=== PATIENT | male | born 1965 | race Caucasian/White ===

== ENCOUNTER 2019-07-12 09:46 | Observation (INO) | payer MEDICARE ==
[~2019-07-12] VITALS: Ht 190.5 cm; Wt 159.1 kg
[2019-07-12 10:49] LABS: CKMB 4.2 U/L (0.0-3.6); CREATINE KINASE 346 UL (21-232); TROPONIN-I < 0.017 ng/mL (0.000-0.060)
[2019-07-12 11:22] LABS: MAGNESIUM - SERUM 2.2 mg/dL (1.8-2.4); THYROID STIMULATING HORMONE 1.02 uIU/mL (0.36-3.74)
--- NOTE | 2019-07-12 15:40 | NUR ---
NEW PATIENT ADMIT FROM ER VIA WC AND HOSPITAL PERSONNEL. PATIENT ADMITTING DX IS DYSPNEA. PATIENT IS AWAKE, ALERT AND ORIENTED X 4. PATIENT IS AMBULATORY. PATIENT DENIES ANY NEEDS OR PAIN. O2 SAT ON RA IS 93%. TELEMETRY APPLIED. 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 RADHA AVENDANO FROM WOUND CARE EVALUATED AND NO NEW ORDERS RECEIVED. PATIENT REFUSED HOSPITAL GOWN. ORIENTED PATIENT TO ROOM AND CALL LIGHT. PATIENT SITTING UP IN BS. CALL LIGHT IN REACH.
[2019-07-12 15:44] VITALS: BP 152/88; BMI 43.8
--- NOTE | 2019-07-12 17:46 | NUR ---
PATIENT SITTING UP IN BS CHAIR EATING SUPPER. PATIENT IS STABLE AND VSS. PATIENT DENIES ANY NEEDS OR PAIN. WILL CONTINUE TO MON ITOR. SR UP X 2 BED IN LOW POSITION AND CALL LIGHT IN REACH.
[2019-07-12 20:00] VITALS: BP 124/64
[2019-07-13] VITALS: BP 116/64
[2019-07-13 00:58] LABS: CKMB 2.7 U/L (0.0-3.6); CREATINE KINASE 216 UL (21-232); TROPONIN-I < 0.017 ng/mL (0.000-0.060)
[2019-07-13 05:43] VITALS: BP 123/64
[2019-07-13 06:51] LABS: CKMB 2.5 U/L (0.0-3.6); CREATINE KINASE 180 UL (21-232); PRO BNP 315 pg/mL (0-125); TROPONIN-I < 0.017 ng/mL (0.000-0.060)
--- NOTE | 2019-07-13 07:40 | NUR ---
ASSESSMENT COMPLETED. ALERT AND ORIENTED. ON ROOM AIR. LEFT AC SL, PATENT. TELEMERTY SHOWS SR.UP AB ALBERTO.DENIES ANY NEEDS. WILL MONITOR
--- NOTE | 2019-07-13 08:49 | NUR ---
PT STATES HE HAS HX OF VENOUS ULCERS. LEFT LOWER MEDIAL LEG IS DISCOLORED AND THERE IS A HEALED ULCER THERE. HE SAYS WHEN HE FOLLOWED DR LYNCH AND QUIT SMOKING AND LOST WEIGHT THE ULCER STARTED HEALING. WOUND CARE WILL MONITOR.
[2019-07-13 09:16] VITALS: BP 106/53
[2019-07-13 11:08] LABS: BASOPHILS 0.1 % (0-2); EOSINOPHILS 0 % (0-7); HEMATOCRIT 40.6 % (42.0-54.0); HEMOGLOBIN 14.4 g/dL (13.5-17.5); IMMATURE GRANULOCYTES 0.2 % (0-5); LYMPHOCYTES 9.3 % (15-50); MCH 29.3 pg (26.0-34.0); MCHC 35.5 g/dL (31.0-37.0); MCV 82.7 fL (80.0-100.0); MEAN PLATELET VOLUME 11.5 fL (7.4-10.4); MONOCYTES 8.8 % (2-11); NEUTROPHILS 81.6 % (40-80); PLATELET COUNT 191 10x3/uL (130-400); RBC 4.91 10x6/uL (4.20-6.10); RDW 14.8 % (11.5-14.5); WBC 14.1 10x3/uL (4.8-10.8)
[2019-07-13 12:25] VITALS: Ht 190.5 cm; Wt 159.1 kg
--- NOTE | 2019-07-13 12:55 | NUR ---
URINE CUP GIVEN TO PT FOR UA AND CULTURE. ST ATED HE WOULD WHEN HE HAS TO GO
[2019-07-13 13:09] LABS: CKMB 2.4 U/L (0.0-3.6); CREATINE KINASE 166 UL (21-232)
[2019-07-13 13:11] LABS: TROPONIN-I < 0.017 ng/mL (0.000-0.060)
[2019-07-13 13:20] VITALS: BP 116/95
--- NOTE | 2019-07-13 14:31 | EC ---
PATIENT:AMANDA AVERY DATE OF SERVICE: 07/12/19 SEX: M MEDICAL RECORD: [id number] DATE OF : 61 LOCATION:D.M2 D.212 AGE OF PATIENT: 54 ADMISSION DATE: 07/12/19 REFERRING PHYSICIAN: INTERPRETING PHYSICIAN: DAVID GONZALEZ MD ECHOCARDIOGRAM REPORT ECHO CHARGES 4 ECHO COMPLETE Date: 07/12/19 CLINICAL DIAGNOSIS: CHF ECHOCARDIOGRAPHIC MEASUREMENTS (adult normal given) AC root (d.<3.7cm) 3.6 cm LV Septum d (<1.2 cm> 2.0 cm Valve Excursion 2.3 cm LV Septum (systole) 2.4 cm Left Atria (s.<4.0cm> 4.6 cm LVPW d(<1.2cm) 1.8 cm RV (d.<2.3cm) 3.7 cm LVPW (sytole) 2.5 cm LV diastole(<5.6CM) 5.5 cm MV E-F(>70mm/sec) cm LV systole 3.6 cm LVOT Diameter 2.4 cm MV exc.(>10mm) cm Est.ejection fraction (50-75%) % DOPPLER: LVIT cm/sec A 64.0 cm/sec E 68.0 cm/sec LA cm/sec RVSP 20.0 mmHg LVOT 186 cm/sec AOP1/2T m/s Asc. Ao 187 cm/sec RVOT 79.0 cm/sec RA cm/sec PA 101 cm/sec AV Gradient Peak 14.0 mmHg AV Mean 7.4 mmHg AV Area 4.3 cm MV Gradient Peak 3.5 mmHg MV Mean 1.7 mmHg MV Area cm COMMENTS: Director Of Social Work: Juvenal NINA Dental Mechanic: 3 Dr. Hernandez TAPE# PACS Pericardial Effusion N DATE OF SERVICE: 07/12/2019 FINDINGS: 1. Left ventricular chamber size is within normal limits. Left ventricular systolic function is normal at 55%. 2. Left atrium is enlarged at 4.6 cm. Right atrium and right ventricular chamber sizes are as well mildly dilated. 3. Valvular structures have normal structure and motion. 4. Doppler interrogation reveals no significant valvular insufficiency or stenosis. ECHOCARDIOGRAM REPORT [id number] AMANDA AVERY 5. No evidence of pericardial effusion or left ventricular thrombus. Pulmonary systolic pressure is normal estimated at 20 mmHg. 6. No evidence of pericardial effusion or left ventricular thrombus. TRANSINT:[id number] Voice Confirmation ID: [id number] DOCUMENT ID: [id number] DAVID GONZALEZ MD at 1431 CC: [id number] DICTATION DATE: 07/12/19 1706 PATTERN CLERK: 07/12/19 [id number] ADM IN [facility] [address] [id number]
--- NOTE | 2019-07-13 14:31 | CN ---
PATIENT NAME:AMANDA AVERY MEDICAL RECORD: [id number] : 61 LOCATION:D. D.2121 ADMIT DATE: 07/12/19 ACCOUNT: [id number] CONSULTING PHYSICIAN: DAVID GONZALEZ MD REFERRING PHYSICIAN: DYLLAN OSORIO MD DATE OF CONSULTATION: 07/13/2019 CARDIOLOGY CONSULT ADMITTING DIAGNOSES: 1. Chest pain. 2. Shortness breath, dyspnea on exertion. 3. Hypertension. 4. Obesity. HISTORY OF PRESENT ILLNESS: Mr. Avery has no previous cardiac history. He awoke with chest tightness and shortness of breath. His troponins are normal. His EKG shows a right bundle branch block, left anterior hemiblock, but no ST-T changes or abnormalities. His troponins have been normal. His breathing is now at baseline. He had an echocardiogram, this was overall normal. PHYSICAL EXAMINATION: CONSTITUTIONAL/GENERAL APPEARANCE: Well nourished, well developed, appears stated age. EYES: Lids and conjunctivae noninjected. No discharge. No pallor. ENT: Lips within normal limit. No cyanosis. No pallor. NECK: Carotid arteries, bilateral normal upstroke. No bruits. No thrills. No jugular venous pressure or distention. CERVICAL LYMPH NODES: Nontender. Nonenlarged. THYROID: Not enlarged. No nodules. CARDIOVASCULAR: Precordial exam, nondisplaced. No heaves or pericardial thrills. Rate and rhythm, regular. Heart sounds, normal S1, normal S2. No S3, no gallop, no rub. Systolic murmur, not heard. Diastolic murmur, not heard. RESPIRATORY: Respiratory effort, unlabored. Normal curvature. No thoracic deformity. No chest wall tenderness. Percussion, resonant. Auscultation, clear. No wheezes, no rales, no rhonchi. ABDOMEN: Soft, nondistended, nontender. No abdominal pain, no vomiting and normal appetite. MUSCULOSKELETAL: No joint tenderness, normal gait, normal tone. SKIN: Warm and dry. OVERALL IMPRESSION: Chest pressure, shortness of breath, dyspnea on exertion, hypertension, obesity, abnormal ECG. At this time, he needs a risk stratification. He prefers to do this as an outpatient. There is no problem with that. We will risk stratify with stress testing, Cardiolite imaging as an outpatient. Further care depends upon the findings of the stress test. TRANSINT:[id number] Voice Confirmation ID: [id number] DOCUMENT ID: [id number] CONSULT REPORT [id number] AMANDA AVERY JEFFREY MD at 1431 CC: [id number] DICTATION DATE: 07/13/19 1223 [employer]: 07/13/19 1243 ADM IN [id number] [place] [address]
--- NOTE | 2019-07-13 14:49 | NUR ---
I have reviewed this patient and I concur with the Shift Assessment completed by the Licensed Practical Nurse today this shift.
[2019-07-13 15:32] LABS: APPEARANCE CLEAR (CLEAR); BILIRUBIN NEGATIVE (NEGATIVE); COLOR YELLOW (YELLOW); GLUCOSE NEGATIVE (NEGATIVE); KETONE NEGATIVE (NEGATIVE); NITRITE NEGATIVE (NEGATIVE); PROTEIN TRACE mg/dL (NEGATIVE); UROBILINOGEN NORMAL (NORMAL)
[2019-07-13] MEDS ORDERED: PROTONIX40 MG PO (15:35)
[2019-07-13] MEDS ORDERED: LASIX40 MG PO (15:36)
--- NOTE | 2019-07-13 16:44 | NUR ---
PT DISCHARGED. IV DCD WITH TIP INTACT. TO PRIVATE CAR PER WHEELCHAIR
== END 2019-07-13 16:45 | disposition home or self-care (01) ==
LOC: D.ER 09:46 → D.M2 13:50 → OBSVTIME 13:50 → D.SDCHOLD 15:31 → D.M2 15:31
PROVIDERS: Emergency Medicine; ADMIT Internal Medicine Nephrology; ATTEND Internal Medicine Nephrology
DX: R07.9 Chest pain, unspecified (principal); R06.02 Shortness of breath; E66.9 Obesity, unspecified; I10 Essential (primary) hypertension; Z68.41 Body mass index [BMI] 40.0-44.9, adult; G47.33 Obstructive sleep apnea (adult) (pediatric); I20.9 Angina pectoris, unspecified

== ENCOUNTER → 2019-07-20 10:06 | Outpatient (CLI) | payer OTHER ==
[2019-07-13 12:25] VITALS: BMI 43.8
[~2019-07-20 10:06] MED LIST: LASIX40 MG PO; POTA CHLORIDE ER 10M PO; PROTONIX40 MG PO
== END | disposition home or self-care (01) ==
LOC: D.HCCARDIO 07-19 12:00
PROVIDERS: ATTEND Internal Medicine Cardiovascular Disease
DX: R07.9 Chest pain, unspecified (principal)

== ENCOUNTER 2019-07-28 07:31 | Outpatient (CLI) | payer OTHER ==
[~2019-07-28] VITALS: Ht 190.5 cm; Wt 159.1 kg
--- NOTE | ~2019-07-28 | HEMODYNAMI ---
PATIENT:AMANDA AVERY MEDICAL RECORD: [id number] : 61 LOCATION:[facility] ADMISSION DATE: 07/28/19 Generatedon:07/28/20199:52 Patient name: AMANDA AVERY Patient #: [id number] SSN: : 1965 Date of study: 07/28/2019 Page: Of Hemodynamic Procedure Report Patient Data Patient Demographics Procedure consent was obtained First Name: AMANDA Gender: Male Last Name: GENA : 1965 Patient #: [id number] Age: 54 year(s) Race: Unknown Additional ID: [id number] Contact details Address: [place] [address] State: [place] City: [place] Zip code: [address] Past Medical History Allergies: No known allergies Admission Admission Data Admission Date: 07/28/2019 Admission Time: 7:31 Arrival Date: 07/28/2019 Arrival Time: 0:00 Insurance Payor: Private health insurance Height (in.): 74.8 BSA: 2.78 (m2) Height (cm.): 190 BMI: 43.98 (kg/m2) Weight (lbs.): 350 Weight (kg.): 158.76 Lab Results Lab Result Date: 07/28/2019 Lab Result Time: 0:00 Biochemistry Name Units Result Min Max BUN mg/dl 25 --(----)-* 7 18 Creatinine mg/dl 0.9 --(-*--)-- 0.6 1.3 eGFR ml/min 90 --(*---)-- 90 120 NONAFRICAN CBC Name Units Result Min Max Hematocrit % 45.2 --(-*--)-- 42 54 Hemoglobin g/dl 15.4 --(-*--)-- 13.5 17.5 Procedure Procedure Types Cath Procedure Diagnostic Procedure LHC LHC w/Coronaries Procedure Description Procedure Date Procedure Date: 07/28/2019 Procedure Start Time: 9:37 Procedure End Time: 9:49 Procedure Staff Name Function Aaron Lainez MD Performing Physician Natacha Webb RT Monitor Sigrid Lopez RT Scrub Talon Wilson RN Nurse Procedure Data Cath Procedure Fluoroscopy Diagnostic fluoroscopy Total fluoroscopy Time: 1.4 time: 1.4 min min Diagnostic fluoroscopy Total fluoroscopy dose: 975 dose: 975 mGy mGy Contrast Material Contrast Material Type Amount (ml) Isovue 300 52 Entry Location Entry Primary Successful Side Size Upsize Upsize Entry Closure Nino ccessful Closure Location (Fr) 1 (Fr) 2 (Fr) Remarks Device Remarks Radial Right 6 Fr Mechanical artery Short Compression Estimated blood loss: 5 ml Diagnostic catheters Device Type Used For End Catheter Placement DIAGNOSTIC [place] 110cm 5 Procedure Fr catheter ([id number]) Procedure Complications No complications Procedure Medications Medication Administration Route Dosage Oxygen etCO2 Nasal cannula 2 l/min Lidocaine 2% added to field 20 Heparin Flush Bag added to field 2 bags (1000units/500ml NS) 0.9% NaCl I.V. 100 ml/hr Radial Cocktail I.A. 1 syringe (Verapamil 2mg/Nitro 400mcg/Heparin 1500units) Versed I.V. 2 mg Fentanyl I.V. 100 mcg Versed I.V. 2 mg Fentanyl I.V. 100 mcg Hemodynamics Rest BSA: 2.78 (m2) HGB: 15.4 (g/dl) O2 Consumption: Estimated: 298.79 (ml/min) O2 Co nsumption indexed: Estimated:107.48 (ml/min/m) Heart Rate: 41 (bpm) Snapshots Pre Cath Intra NCS Post Cath Vital Signs Time Heart Resp SPO2 etCO2 NIBP (mmHg) Rhythm Pain Sedation Rate (ipm) (%) (mmHg) Status Level (bpm) 9:15:54 69 25 95 32.1 136/88(120) NSR 0 (11) 10(A) , No pain 9:20:11 58 16 93 37.3 130/87(108) NSR 0 (11) 10(A) , No pain 9:24:33 53 17 95 22.4 140/83(109) NSR 0 (11) 10(A) , No pain 9:28:55 53 16 94 35.8 119/79(97) NSR 0 (11) 10(A) , No pain 9:33:15 54 21 93 33.6 119/70(92) NSR 0 (11) 10(A) , No pain 9:37:37 52 15 94 17.1 114/72(87) NSR 0 (11) 9(A) , No pain 9:41:59 55 14 94 23.1 100/61(76) NSR 0 (11) 9(A) , No pain 9:46:14 50 14 93 26.8 118/70(96) NSR 0 (11) 10(A) , No pain Medications Time Medication Route Dose Verified Delivered Reason Notes Effectiveness by by 9:17:49 Oxygen etCO2 2 l/min Aaron Hanley used for Nasal Fatou Wilson RN procedure cannula 9:17:58 Lidocaine 2% added 20ml Aarongemini Walker for local to vial Fatou Lainez MD anesthetic field 9:18:04 Heparin Flush added 2 bags Aaron Walker used for Bag to Fatou Lainez MD procedure (1000units/500ml field NS) 9:18:13 0.9% NaCl I.V. 100 Aaron Hanley Per ml/hr Fatou Wilson RN physician 9:34:07 Versed I.V. 2 mg Aaron Hanley for sedation Fatou Wilson RN 9:34:12 Fentanyl I.V. 100 mcg Aaron Hanley for sedation Fatou Wilson RN 9:41:24 Versed I.V. 2 mg Aaron Hanley for sedation Fatou Wilson RN 9:41:28 Radial Cocktail I.A. 1 Aaron Walker for (Verapamil syringe Fatou Lainez MD vasodilation 2mg/Nitro 400mcg/Heparin 1500units) 9:41:28 Fentanyl I.V. 100 mcg Aaron Hanley for sedation Fatou Wilson RN Procedure Log Time Note 8:53:37 Patient Weight : 350 lbs 8:53:41 Arrival Date: 07/28/2019 12:00:00 AM 8:53:47 Insurance Payor : Private health insurance 8:54:23 Signed procedure consent form obtained from patient. 8:54:25 Procedure Status Elective Heart Cath (OP). 8:54:26 Time tracking: Regular hours (M-F 7:00 - 5:00) 8:54:29 Plan of Care:Hemodynamics will remain stable., Cardiac rhythm will remain stable., Comfort level will be maintained., Respiratory function will remain adequate., Patient/ family verbilizes understanding of procedure., Procedure tolerated without complication., Recovers from procedure without complications.. 8:54:31 Talon Wilson RN sent for patient. Start room use. 8:55:26 Patient Height : 74.8 inches 9:13:18 Patient received from Pre/Post Procedure Room to CCL 1 Alert and oriented. Tansferred to table in Supine position. 9:13:19 Warm blankets applied, and magnolia hugger turned on for patient comfort. 9:13:20 Correct patient and procedure confirmed by team. 9:13:20 ECG and BP/O2 sat monitors applied to patient. 9:13:22 Vital chart was started 9:13:24 Baseline sample Acquired. 9:13:27 Rhythm: sinus bradycardia 9:13:28 Full Disclosure recording started 9:13:31 H&P Date Dictated: 07/28/2019 New H&P dictated by physician.. 9:13:32 Pre-procedure instructions explained to patient. 9:13:32 Pre-op teaching completed and patient verbalized understanding. 9:13:33 Family in waiting room. 9:13:35 Patient NPO since Midnight. 9:13:42 Patient allergic to No known allergies 9:13:49 Is patient on blood thinner?No 9:13:51 If diabetic: On Metformin? No 9:13:54 Previous problem with sedation/anesthesia? No ? 9:13:54 Snore? Yes 9:13:55 Sleep apnea? Yes 9:13:56 Deviated septum? No 9:13:57 Opens mouth fully? Yes 9:13:57 Sticks out tongue? Yes 9:13:59 Airway obstruction? No ? 9:14:00 Dentures? No ? 9:14:03 Pre procedure: right dorsailis pedis pulse 2+ Normal; easily identifiable; not easily obliterated 9:14:05 Modified Papito's test Ulnar < 7 seconds 9:14:07 Patient pain scale 0/10 ?. 9:14:12 IV patent on arrival in left wrist with 0.9% NaCl at [facility]. 9:15:07 Lab Result : BUN 25 mg/dl 9:15:07 Lab Result : Creatinine 0.9 mg/dl 9:15:07 Lab Result : Hemoglobin 15.4 g/dl 9:15:07 Lab Result : eGFR NONAFRICAN 90 ml/min 9:15:07 Lab Result : Hematocrit 45.2 % 9:15:10 Lab results completed and on chart. 9:15:13 Right Radial & Right Groin area was prepped with chlora-prep and draped in sterile fashion 9:15:14 Alarms reviewed by R. N. 9:15:16 Sharps counted by scrub and verified by R.N. 9:17:49 Oxygen 2 l/min etCO2 Nasal cannula was administered by Talon Wilson RN; used for procedure; Verbal order read back and verified. 9:17:58 Lidocaine 2% 20ml vial added to field was administered by Aaron Lainez MD; for local anesthetic; Verbal order read back and verified. 9:18:04 Heparin Flush Bag (1000units/500ml NS) 2 bags added to field was administered by Aaron Lainez MD; used for procedure; Verbal order read back and verified. 9:18:13 0.9% NaCl 100 ml/hr I.V. was administered by Talon Wilson RN; Per physician; Verbal order read back and verified. 9:18:20 Use device set Radial Dx or PCI 9:18:21 ACIST Syringe (95905) opened to sterile field. 9:18:22 Bag Decanter () opened to sterile field. 9:18:23 ACIST Hand Control (92647) opened to sterile field. 9:18:23 ACIST Manifold (20235) opened to sterile field. 9:18:23 Tegaderm 4 x 4 (1626W) opened to sterile field. 9:18:25 Medline Cath Pack ([id number]) opened to sterile field. 9:18:25 MBrace Wrist Support ([id number]) opened to sterile field. 9:18:27 EMERALD Guide Wire (629-107) opened to sterile field. 9:18:27 SHEATH 6FR RAIN (8347430) opened to sterile field. 9:33:08 Zero performed for pressure channel P1 9:33:15 --------ALL STOP TIME OUT------ 9:33:15 Final Timeout: patient, procedure, and site verified with staff and physician. All members of the team are in agreement. 9:33:16 Right Radial & Right Groin site verified by team. 9:33:25 Fire Safety Assessment: A--An alcohol-based skin anteseptic being used preoperatively., C--Open oxygen or nitrous oxide is being used., D--An ESU, laser, or fiber-optic light is being used. 9:34:07 Versed 2 mg I.V. was administered by Talon Wilson RN; for sedation; Verbal order read back and verified. 9:34:12 Fentanyl 100 mcg I.V. was administered by Talon Wilson RN; for sedation; Verbal order read back and verified. 9:34:40 Zero performed for pressure channel P1 9:37:08 Procedure started. 9:37:20 Local anesthetic to right radial artery with Lidocaine 2% by Aaron Lainez MD.INITIAL ACCESS ONLY 9:39:07 A 6 Fr Short sheath was inserted into the Right Radial artery 9:41:24 Versed 2 mg I.V. was administered by Talon Wilson RN; for sedation; Verbal order read back and verified. 9:41:28 Radial Cocktail (Verapamil 2mg/Nitro 400mcg/Heparin 1500units) 1 syringe I.A. was administered by Aaron Lainez MD; for vasodilation; Verbal order read back and verified. 9:41:28 Fentanyl 100 mcg I.V. was administered by Talon Wilson RN; for sedation; Verbal order read back and verified. 9:42:16 A DIAGNOSTIC [place] 110cm 5 Fr catheter ([id number]) was advanced over the wire and used for Procedure. 9:42:22 LV gram done using [facility]IAM[facility] 9:42:25 Injector settings: Ml/sec: 5, Volume: 15, 9:42:46 EF : 55 % 9:44:37 LCA angiography performed. 9:44:47 RCA angiography performed. 9:44:50 Catheter removed. 9:45:05 TR BAND Large ([id number]) opened to sterile field. 9:46:04 Procedure ended.(Physican Out) 9:46:44 Sheath removed intact; hemostasis achieved with Mechanical Compression to the Right Radial artery. 9:46:49 Fluoroscopy time 01.40 minutes. 9:46:54 Fluoroscopy dose: 975 mGy 9:46:54 Flurop Dose total: 975 9:46:58 Dose Area Product 95059 mGy/cm. 9:47:11 Contrast amount:Isovue 300 52ml. 9:47:19 Maximum allowable dose exceeded? No. 9:47:19 Sharps counted by scrub and verified by R.N. 9:47:41 TR band inflated with 10cc of air 9:47:49 Post-procedure physical assessment completed. ASA score P 2 - A patient with mild systemic disease as per Aaron Lainez MD. 9:47:53 Post procedure rhythm: sinus bradycardia 9:47:59 Estimated blood loss: 5 ml 9:48:01 Post procedure instruction explained to patient.Patient verbalizes understanding. 9:48:02 Patient needs reinforcement of post procedure teaching. 9:49:19 Procedure and supply charges have been captured, reviewed, submitted and are correct. 9:49:22 Procedure Complication : No complications 9:49:24 Vital chart was stopped 9:49:24 See physician's report for complete and final results. 9:49:25 Report given to Pre/Post Procedure Room. 9:49:28 Patient transfered to Pre/Post Procedure Room with Bed. 9:49:31 Procedure ended. 9:49:31 Full Disclosure recording stopped 9:49:34 End room use (Document Last) 9:51:58 End room use (Document Last) 9:52:31 End room use (Document Last) Device Usage Item Name Manufacture Quantity Catalog Hospital Part Current Minima l Lot# / Number Charge Number Stock Stock Serial# Code ACIST Acist 1 99591 [id number] [id number] [id number] 20 Syringe Medical (20073) Systems Inc Bag Microtek 1 2001S 309052 72568 681266 5 Decanter Medical Inc. () ACIST Hand Acist 1 61761 416313 780882 593665 5 Control Medical (99779) Systems Inc ACIST Acist 1 81581 801059 587814 720262 5 Manifold Medical (33079) Systems Inc Tegaderm 4 3M 1 1626W 672625 003511 893396 5 x 4 (1626W) Medline Medline 1 [id number] 357623 93621 816395 5 Cath Pack ([id number]) MBrace Advanced 1 140-0250-00 922058 20521 250279 5 Wrist Vascular Support Dynamics ([id number]) EMERALD Cardinal 1 434-605 492238 072031 885163 5 Guide Wire Health (630-768) SHEATH 6FR Cardinal 1 [id number] 332422 6359780 289323 5 [facility] (8378624) DIAGNOSTIC Terumo 1 20-1169 740687 630975 161609 5 [place] 110cm 5 Fr catheter (033743) TR BAND Terumo 1 [id number] 582160 390982 836749 40 Large ([id number]) Signature Audit [place] Stage Time Signature Unsigned Intra-Procedure 07/28/2019 Natacha Webb 9:51:58 AM RT(R) Intra-Procedure 07/28/2019 Talon Wilson RN 9:52:31 AM Intra-Procedure 07/28/2019 Aaron Lainez 9:52:45 AM [facility] [address] [place] [address]
[~2019-07-28 07:31] MED LIST changes: -POTA CHLORIDE ER 10M PO
[2019-07-28] MEDS ORDERED: POTA CHLORIDE ER 10M PO (07:59)
[2019-07-28 08:10] VITALS: BP 136/75; Ht 190.5 cm; Wt 159.1 kg
[2019-07-28 08:56] LABS: BASOPHILS 0.3 % (0-2); EOSINOPHILS 2.7 % (0-7); HEMATOCRIT 45.2 % (42.0-54.0); HEMOGLOBIN 15.4 g/dL (13.5-17.5); IMMATURE GRANULOCYTES 0.6 % (0-5); LYMPHOCYTES 19.4 % (15-50); MCH 29.1 pg (26.0-34.0); MCHC 34.1 g/dL (31.0-37.0); MCV 85.3 fL (80.0-100.0); MEAN PLATELET VOLUME 10.7 fL (7.4-10.4); PLATELET COUNT 208 10x3/uL (130-400); RDW 14.9 % (11.5-14.5); WBC 12.4 10x3/uL (4.8-10.8)
[2019-07-28 09:11] LABS: ALT (SGPT) 43 U/L (10-68); CALC OSMOLALITY 281 mosm/kg (275-300); CALCIUM 9.1 mg/dL (8.5-10.1); CARBON DIOXIDE 26.2 mmol/L (21.0-32.0); CHLORIDE - SERUM 101 mmol/L (98-107); CHOL - HDL RATIO 5.2 ratio (2.3-4.9); CHOLESTEROL, TOTAL 222 mg/dL (0-200); CREATININE - SERUM 0.9 mg/dL (0.6-1.3); GLUCOSE 132 mg/dL (74-106); HDL CHOLESTEROL 43 mg/dL (32-96); LDL CHOLESTEROL 143 mg/dL (0-100); LDL-HDL RATIO 3.3 ratio (1.5-3.5); SODIUM 138 mmol/L (136-145); TRIGLYCERIDE 182 mg/dL (30-200); UREA NITROGEN 25 mg/dL (7-18); eGFR NON AFRICAN AMERICAN > 90 mL/min (90-120)
[2019-07-28 09:13] LABS: POTASSIUM - SERUM 4.2 mmol/L (3.5-5.1)
--- NOTE | 2019-07-28 10:09 | NUR ---
RECEIVED PT FROM BAND BIAS MACHINE OPERATOR. PT IS ALERT, SITING UP IN BED, VISTING WITH FRIEND IN THE ROOM. DENIES ANY C/O PAIN OR NAUSEA. TR BAND IS CDI, FINGERS WARM AND CAP REFILL IS BRISK. PO FLUIDS SERVED. BED LOCKED AND LOW, SIDE RAILS UP X2, CALL LIGHT IN REACH.
--- NOTE | 2019-07-28 10:24 | NUR ---
PT SITTING UP IN BED, EATING SANDWICH, IS ALERT AND DENIES ANY C/O. Z TR BAND IS CDI, FINGERS WARM AND CAP REFILL IS BRISK. VSS
--- NOTE | 2019-07-28 10:45 | NUR ---
1045 PT SMITA 100 % OF SANDWICH, IS ALERT AND DENIES ANY C/O. SINUS ARIANE AT 52, DENIES CHEST PAIN. TR BAND IS CDI, FINGERS WARM AND CAP REFILL IS BRISK. FRIEND AT BEDSIDE, DR GONZALEZ HAS ROUNDED ON PT.
--- NOTE | 2019-07-28 11:00 | NUR ---
3 CC OF AIR WEANED FROM TR BAND WITH NO BLEEDING NOTED. FINGERS WARM AND CAP REEFILL IS BRISK.
--- NOTE | 2019-07-28 11:27 | NUR ---
1125 3 CC OF AIR WEANED FROM TR BAND WITH NO BLEEDING NOTED.
--- NOTE | 2019-07-28 11:42 | NUR ---
ALL AIR HAS BEEN WEANED FROM TR BAND WITH NO BLEEDING NOTED. FINGERS WARM, PULSES PALPABLE. PT DENIES ANY C/O. DC INSTRUCTIONS REVIEWED WITH PT WHO VERBALIZES UNDERSTANDING.
--- NOTE | 2019-07-28 11:59 | NUR ---
IV HS BEEN DC'D WITH CATH INTACT. DC INSTRUCTIONS REVIEWED WITH PT WHO VERBALIZES UNDERSTANDING. PT ESCORTED TO PRIVATE AUTO VIA WC BY NURSE WITH FRIEND DRIVING HIM HOME. 2X2 AND TEGADERM CDI TO RIGHT WRIST, PULSES PALPABLE. PT DENIES ANY N/V DEFICIT TO HAND. PT HAS ALL PERSONAL BELONGINGS AND DC INSTRUCTIONS.
--- NOTE | 2019-07-28 12:40 | HP ---
PATIENT: AMANDA AVERY MEDICAL RECORD: [id number] ACCOUNT: [id number] LOCATION:JENNIFER : 61 ADMISSION DATE: 07/28/19 PCP: AMADEO RAMON HISTORY AND PHYSICAL EXAMINATION DIAGNOSES: 1. Angina. 2. Shortness of breath, dyspnea on exertion. 3. Hypertension. 4. Obesity. 5. Abnormal nuclear stress test. HISTORY OF PRESENT ILLNESS: This is a gentleman who presented earlier in the month with chest pain, shortness of breath, abnormal ECG with a right bundle branch block. He has continued to have symptomatology, underwent nuclear stress testing which was high risk suggestive of multivessel coronary artery disease. He is now brought for cardiac catheterization. FAMILY HISTORY: Positive for coronary artery disease. SOCIAL HISTORY: He lives in the [place] area. Denies smoking or ETOH. REVIEW OF SYSTEMS: The patient reports easy bruising but reports no swollen glands. The patient reports no fever, no night sweats, no significant weight gain, no significant weight loss. No significant exercise tolerance. The patient reports no dry eyes, no irritation, no vision change. Patient reports no difficulty hearing and no ear pain. Patient reports no frequent nose bleeds or nose and sinus problems. Patient reports on arm pain on exertion. No shortness of breath while lying down. No history of heart murmur. Patient reports no cough, no wheezing or coughing up blood. Patient reports no abdominal pain, no vomiting. Normal appetite. No diarrhea and not vomiting blood. No nausea and no constipation. Patient reports no incontinence. No difficulty urinating. No hematuria. No increased frequency. Patient reports no muscle aches. No weakness, no arthralgias, no back pain. No swelling of the extremities. Patient reports no abnormal mole, no jaundice, no rashes. Reports no loss of consciousness. No weakness and no numbness. No seizures, dizziness, or headaches. The patient reports no depression, no sleep disturbance, feeling safe in a relationship and no alcohol abuse. Patient reports on fatigue. Reports no runny nose or sinus pressure. No itching, no hives, and no frequent sneezing. PHYSICAL EXAMINATION: CONSTITUTIONAL/GENERAL APPEARANCE: Well nourished, well developed, appears stated age. EYES: Lids and conjunctivae noninjected. No discharge. No pallor. ENT: Lips within normal limit. No cyanosis. No pallor. NECK: Carotid arteries, bilateral normal upstroke. No bruits. No thrills. No jugular venous pressure or distention. CERVICAL LYMPH NODES: Nontender. Nonenlarged. THYROID: Not enlarged. No nodules. CARDIOVASCULAR: Precordial exam, nondisplaced. No heaves or pericardial thrills. Rate and rhythm, regular. Heart sounds, normal S1, normal S2. No S3, no gallop, no rub. Systolic murmur, not heard. Diastolic murmur, not heard. RESPIRATORY: Respiratory effort, unlabored. Normal curvature. No thoracic deformity. No chest wall tenderness. Percussion, resonant. Auscultation, HISTORY AND PHYSICAL [id number] GENA,AMANDA clear. No wheezes, no rales, no rhonchi. ABDOMEN: Soft, nondistended, nontender. No abdominal pain, no vomiting and normal appetite. MUSCULOSKELETAL: No joint tenderness, normal gait, normal tone. SKIN: Warm and dry. OVERALL IMPRESSION: Anginal symptomatology with high risk abnormal nuclear stress test. We will proceed with coronary angiography. Further care depends upon the findings of the angiography. TRANSINT:[id number] Voice Confirmation ID: [id number] DOCUMENT ID: [id number] DAVID GONZALEZ MD at 1240 CC: [id number] DICTATION DATE: 07/28/19948 CONTROL SYSTEMS DESIGNER: 07/28/19 1213 DEP CLI 07/28/19 [facility] [address] [id number]
--- NOTE | 2019-07-28 12:40 | OP ---
PATIENT NAME: AMANDA AVERY MEDICAL RECORD: [id number] :61 LOCATION:D.CAT ADMISSION DATE: SURGEON: DAVID GONZALEZ MD DATE OF OPERATION: 07/28/2019 PROCEDURES: 1. Left heart catheterization. 2. Selective coronary angiography. 3. Left ventriculogram. INDICATION: Angina, coronary artery disease, abnormal nuclear stress test. DESCRIPTION OF PROCEDURE: After informed consent was obtained and after a detailed description of the risks, benefits as well as alternative therapies, the patient elected to proceed with angiogram and heart catheterization. The right radial area was prepped and draped in normal sterile fashion. Right radial artery was cannulated via modified Seldinger technique with placement of 5-Citizen Of [place] sheath. All catheters exchanged through this sheath. FINDINGS: Left ventriculogram was performed in standard 30-degree [place] view, reveals good cardiac wall motion, ejection fraction 50% to 55%. SELECTIVE CORONARY ANGIOGRAPHY: Left main, left anterior descending, left circumflex, right coronary artery are very large vessels with only minimal irregularities, no flow-limiting stenosis. OVERALL IMPRESSION: Minimal coronary artery disease is present. No flow-limiting stenosis. Preserved left ventricular function. Symptomatology is most likely secondary to his obesity. No coronary artery disease is present. No other cardiac workup needs to be ascertained. TRANSINT:[id number] Voice Confirmation ID: [id number] DOCUMENT ID: [id number] DAVID GONZALEZ MD at 1240 CC: [id number] DICTATION DATE: 07/28/19 0950 MECHANICAL ORDNANCE ASSEMBLER: 07/28/19 1237 DEP CLI 07/28/19 [facility] [address] [id number]
== END 2019-07-28 11:59 | disposition home or self-care (01) ==
LOC: D.CATH 07:31 → D.CLR 10:16 → D.CATH 11:59
PROVIDERS: ATTEND Internal Medicine Interventional Cardiology
DX: I20.0 Unstable angina (principal); R06.02 Shortness of breath; R07.9 Chest pain, unspecified; E66.01 Morbid (severe) obesity due to excess calories; R94.30 Abnormal result of cardiovascular function study, unspecified